=== PATIENT | female | born 1965 | race Two or more races ===

== ENCOUNTER 2019-09-12 22:19 | Emergency (ER) | payer OTHER ==
[~2019-09-12] VITALS: Ht 162.6 cm; Wt 122.5 kg
== END 2019-09-13 01:36 | disposition home or self-care (01) ==
LOC: ER 22:19
DX: R42 Dizziness and giddiness (principal); R51 Headache; T58.8X4A Toxic effect of carbon monoxide from other source, undetermined, initial encounter; Y92.811 Bus as the place of occurrence of the external cause